=== PATIENT | male | born 1935 | race Caucasian/White ===

== ENCOUNTER 2017-02-01 16:25 | Inpatient (IN) | payer OTHER ==
--- NOTE | ~2017-02-01 | EKG ---
PATIENT: ALEXANDRA HINTON UNIT #: [id number] Ventricular Rate: 74 BPM Atrial Rate: 74 BPM P-R Interval: 162 ms QRS Duration: 82 ms Q-T Interval: 414 ms QTC Calculation(Bezet): 459 ms P [place]: 42 degrees Calculated R [place]: -27 degrees Calculated T [place]: 102 degrees Diagnosis Line: Normal sinus rhythm Diagnosis Line: Minimal voltage criteria for LVH, may be normal Diagnosis Line: variant Diagnosis Line: Inferior infarct , age undetermined Diagnosis Line: T wave abnormality, consider lateral ischemia Diagnosis Line: Abnormal ECG Diagnosis Line: No previous ECGs available Diagnosis Line: Confirmed by CHANELL PICKENS MD ([id number]) on Diagnosis Line: 02/03/2017 3:16:59 PM INTERPRETING MD: NELIA DAVILA
--- NOTE | ~2017-02-01 | CT71 ---
[facility] A Service of [facility] RADIOLOGY TEXT RESULTS PATIENT: ALEXANDRA HINTON LOCATION: [facility] : 33 UNIT #: [id number] AGE: [address]: El Mckinney MD SEX: M ORDER DR: [id number] [facility] [address] [place], [place] [address] [id number] MR#: [id number] #: [id number] NAME: ALEXANDRA HINTON : 1935 SEX: M STUDY DATE/TIME: 02/01/2017 17:28 UNIT: [address] ROOM: [facility] STUDY DESCRIPTION: CT Head Wo Contrast Attending Physician: El Mckinney M.D. Ordering Physician: Sumanth Clay M.D. MEDICAL IMAGING REPORT This report is preliminary unless electronic signature is present EXAM Head CT without contrast, 02/01/2017 HISTORY Left arm numbness beginning last night. Focal neurologic defect. No headache. This CT exam was performed with one or more of the following radiation dose reduction techniques: automatic exposure control, adjustment of mA and/or kV according to patient size, and iterative reconstruction. FINDINGS Multiple axial images were obtained from the skull base to vertex without intravenous contrast administration. There is generalized enlargement of the ventricles and sulci characteristic of atrophy and there is periventricular microvascular white matter ischemic change. There is an old infarct with encephalomalacia in the inferior left frontal lobe. Tiny old lacunar infarcts are seen in the thalamic nuclei bilaterally. There is no midline shift. There is no mass or mass effect, hemorrhage or acute infarct. The visualized paranasal sinuses are clear. IMPRESSION Generalized atrophy and periventricular microvascular white matter ischemic change. Old infarcts as noted above. No acute intracranial abnormality. Dictated by... Laci Tavarez M.D. THIS IS AN ELECTRONICALLY VERIFIED REPORT Laci Tavarez M.D. at 02/02/2017 2:10 PM [facility] A Service of [facility] RADIOLOGY TEXT RESULTS PATIENT: ALEXANDRA HINTON LOCATION: [facility] : 33 UNIT #: [id number] AGE: [address]: El Mckinney MD SEX: M ORDER DR: SHERRY/balaji TD: 02/02/2017 01:39 JOB #: [id number] MEDICAL IMAGING REPORT Page 1 of 1 COPY
--- NOTE | ~2017-02-01 | HP ---
Unit #: [id number] #: [id number] Patient: ALEXANDRA MCNULTY [id number] [address] [address] [id number] I MR#: [id number] NAME: ALEXANDRA MCNULTY ROOM: 301 Age: 81 Sex: M Admission Date: 02/01/2017 : 1935 Attending Physician: El Mckinney M.D. Primary Care Physician: No Primary Care Physician HISTORY AND PHYSICAL HISTORY OF PRESENT ILLNESS Mr. Mcnulty is an 81-year-old white male. I have seen his before in the office. He presented with awakening yesterday morning with left arm paresthesias and weakness and dyscoordination of the left hand. He said he would tow picker his keys or things and drop them. He presented to the emergency room approximately nine hours after symptoms began. He has not had similar symptoms. He had no vision problems or impaired speech or decreased ability to stand or walk. No falling. He had had no chest pain or arm pain. No shortness of breath or hemoptysis. PAST MEDICAL HISTORY No medical problems. He may be prediabetic with some neuropathy of his feet he says. PAST SURGICAL HISTORY Cholecystectomy. FAMILY HISTORY Negative for lung disease. ALLERGIES Morphine. CURRENT MEDICATIONS He is on no prescribed medications. He does take some supplements. REVIEW OF SYSTEMS CONSTITUTIONAL: No fevers or chills. HEENT: No rhinorrhea, nasal congestion. PULMONARY: No shortness of breath or hemoptysis. CARDIAC: No chest pain. No palpitations. GI: No nausea or vomiting. No melena or hematochezia. RENAL: No hematuria or dysuria. NEUROLOGIC: As noted. MUSCULOSKELETAL: No major pain. SKIN: Recently had some herpes zoster posteriorly on the right side. Symptoms pretty much resolved. PHYSICAL EXAMINATION GENERAL: White male in no distress, sitting in bed. VITALS: Blood pressure 177/97, pulse 72, respiratory rate 19, afebrile. Blood pressure has been elevated. O2 saturation 99% on room air. HEENT: Normocephalic, atraumatic. Pupils equal, round and reactive. Sclerae nonicteric. Nasal passages patent. Posterior pharynx clear. Unit #: [id number] #: [id number] Patient: ALEXANDRA MCNULTY Mucous membranes moist. NECK: Supple. Trachea midline. No cervical or supraclavicular lymphadenopathy. No bruits heard. LUNGS: Clear to auscultation and percussion. HEART: Regular rate and rhythm. Could not appreciate murmur, rub or gallop. ABDOMEN: Nontender. Bowel sounds present. No hepatosplenomegaly. EXTREMITIES: Without clubbing, cyanosis or edema. He does have some mild dyscoordination of left hand and some paresthesias of the left arm below the elbow. There is some discoloration of the right posterior chest wall. DIAGNOSTIC STUDIES IMAGING: CT scan of the head and neck No acute changes. No bleed. Some chronic ischemia changes bilaterally. Periventricular microvascular white matter ischemic change. LABORATORY: Chemistry reviewed and unremarkable. Coags normal. Cardiac enzymes negative. White blood cell count 7,400, hematocrit 40.3, platelets normal. ASSESSMENT 1. Possible right CVA with left arm symptoms. 2. Hypertension. PLAN Will have cardiology see. Will check MRI. Will add lisinopril for high blood pressure. Will make further recommendations pending this. Dictated by Jed Ramírez/cassie TD: 02/02/2017 10:08 JOB #: [id number] CC: Jed Isaac M.D. HISTORY AND PHYSICAL Page 1 of 1 X El Mckinney MD X HISTORY AND PHYSICAL
--- NOTE | ~2017-02-01 | MR134 ---
[facility] A Service of [facility] RADIOLOGY TEXT RESULTS PATIENT: ALEXANDRA HINTON LOCATION: [facility] : 33 UNIT #: [id number] AGE: [address]: El Mckinney MD SEX: M ORDER DR: [id number] [facility] [address] [place], [place] [address] [id number] I MR#: [id number] Acc #: [id number] NAME: ALEXANDRA HINTON : 1935 SEX: M STUDY DATE/TIME: 02/02/2017 13:21 UNIT: A [facility] ROOM: [facility] STUDY DESCRIPTION: MR MRA Neck Wo Contrast Attending Physician: El Mckinney M.D. Ordering Physician: El Mckinney M.D. MRI CENTER REPORT This report is preliminary unless electronic signature is present. EXAM MRA neck 02/02 HISTORY Left-side stroke-like symptoms. Symptoms started middle of the night. Left arm numbness. Former smoker. TECHNIQUE Noncontrast cghu-af-fujcva imaging was obtained through the neck. MIP reconstructions through the arterial system were obtained. COMPARISON STUDIES No comparison. FINDINGS The exam is motion-degraded. Both vertebral arteries appear normal and codominant. Common carotid arteries are within normal limits. There appears to be a high-grade short-segment stenosis in the proximal right ICA. This could be better evaluated with head and neck CT angiogram. No significant left-side stenosis is seen. IMPRESSION 1. Findings are concerning for a high-grade stenosis by NASCET criteria involving the proximal right ICA. This could be better assessed with head and neck CT angiogram. 2. No evidence of carotid or vertebral dissection. Vertebral arteries are codominant and widely patent. Dictated by... Kayode Gil Jr., M.D. [facility] A Service [facility] RADIOLOGY TEXT RESULTS PATIENT: ALEXANDRA HINTON LOCATION: [facility] : 33 UNIT #: [id number] AGE: [address]: El Mckinney MD SEX: M ORDER DR: THIS IS AN ELECTRONICALLY VERIFIED REPORT Kayode Gil Jr., M.D. at 02/02/2017 8:48 PM RLK/pcl TD: 02/02/2017 18:23 JOB #: [id number] MRI CENTER REPORT Page 1 of 1 COPY
--- NOTE | ~2017-02-01 | CO ---
Unit #: [id number] #: [id number] Patient: ALEXANDRA MCNULTY [id number] [address] [address] [id number] I MR#: [id number] NAME: ALEXANDRA MCNULTY ROOM: 301 Age: 81 Sex: M Admission Date: 02/01/2017 : 1935 Attending Physician: El Mckinney M.D. Primary Care Physician: No Primary Care Physician Consultation Date: 02/03/2017 CONSULTATION REPORT CONSULTING PHYSICIAN Dr. Tyson. REASON FOR CONSULTATION Carotid stenosis. Mr. Mcnulty is an 81-year-old male who presented with paresthesias, weakness and discoordination of his left hand. He was unable to hold on to items and could not straighten his hand. He is left handed. His symptoms persisted and he presented to the emergency room. It was nine hours after his symptoms began. As part of his workup, he underwent MRI which demonstrated a right MCA, embolic infarct. It also demonstrated high grade right internal carotid stenosis. Carotid duplex found elevated velocities of 350 of the right internal carotid artery indicating greater than 70% stenosis and elevated velocities of the mid on the left indicating 50% to 69% stenosis. PAST MEDICAL HISTORY He denies significant medical history. He has never seen a plastic maker. He has recently experienced shingles. He does not take any medications daily at home. PAST SURGICAL HISTORY Cholecystectomy. SOCIAL HISTORY He quit smoking in 1981 but smoked a lot prior to that time. He does not drink. He does live with a with significant dementia that he cares for. FAMILY HISTORY Mother is , had a history of heart problems and colon cancer. Father had a history of cancer. REVIEW OF SYSTEMS CONSTITUTIONAL: Negative. HEENT: Positive for wearing glasses. CARDIAC: Significant for chest pain. PULMONARY: Negative for shortness of air. NEUROLOGICAL: Positive for left sided weakness. MUSCULOSKELETAL: Negative. SKIN: Positive for recent shingles. GI: Negative. : Negative. Unit #: [id number] #: [id number] Patient: ALEXANDRA MCNULTY MEDICATIONS 1. He has been initiated on lisinopril 5 mg daily. 2. Aspirin 81 mg daily. PHYSICAL ASSESSMENT VITAL SIGNS: Height is 183 cm, weight is 89 kg. Temperature is 97.8, pulse 67, respirations 20, blood pressure is 175/91. EYES: There is no injected conjunctivae, no xanthelasma of the eyelids. EARS, NOSE, MOUTH AND THROAT: He has moist mucous membranes without pallor or cyanosis. Teeth are in fair repair. He is wearing glasses. NECK: There is no JVD. LUNGS: Clear without use of accessory muscles or intercostal retractions. HEART: S1 and S2. Regular rate and rhythm. ABDOMEN: Soft without hepatosplenomegaly. VASCULAR: He has no cervical bruits. Radial pulses are palpable. There is no pulsatile abdominal mass. Femoral, popliteal, dorsalis pedis and posterior tibial pulses are easily palpable. SKIN: There is no hemosiderin deposition, stasis dermatitis. No wounds or ulcerations to the lower extremities. MUSCULOSKELETAL: Moves extremities well without atrophy or abnormal movements. NEURO: She is alert, oriented. Answers all questions appropriately. Good historian. Left hand weakness has improved. DIAGNOSTIC STUDIES IMAGING: Carotid duplex demonstrates elevated velocity of the right internal carotid artery at 350 indicating greater than 70% stenosis. There is 50% to 69% of the left internal carotid artery. MRA demonstrates right MCA thromboembolic infarcts with high grade right internal carotid stenosis. IMPRESSION Symptomatic high grade right internal carotid stenosis. The patient is left handed. RECOMMENDATIONS He will need a carotid endarterectomy this week. He has already been initiated on aspirin. Will initiate Lipitor 10 mg daily. Cardiology will be consulted for preop endarterectomy and cardiac clearance. Thank you for allowing us to participate in this patient's care. Dictated by... Rafael Lilly.P.R.N. for Jed Pinedo/geovanna TD: 02/04/2017 07:06 JOB #: [id number] Unit #: [id number] #: [id number] Patient: ALEXANDRA MCNULTY CONSULTATION REPORT Page 1 of 1 X X CONSULTATION REPORT
--- NOTE | ~2017-02-01 | EKG ---
PATIENT: ALEXANDRA HINTON UNIT #: [id number] Ventricular Rate: 67 BPM Atrial Rate: 67 BPM P-R Interval: 156 ms QRS Duration: 102 ms Q-T Interval: 448 ms QTC Calculation(Bezet): 473 ms P [place]: 51 degrees Calculated R [place]: -15 degrees Calculated T [place]: 130 degrees Diagnosis Line: Normal sinus rhythm Diagnosis Line: Left ventricular hypertrophy Diagnosis Line: Prolonged QT Diagnosis Line: Abnormal ECG Diagnosis Line: When compared with ECG of 01-FEB-2017 17:02, Diagnosis Line: No significant change was found Diagnosis Line: Confirmed by RICHY ISAACS MD ([id number]) on Diagnosis Line: 02/07/2017 9:46:27 AM INTERPRETING MD: WEI
--- NOTE | ~2017-02-01 | MR122 ---
[facility] A Service of [facility] RADIOLOGY TEXT RESULTS PATIENT: ALEXANDRA HINTON LOCATION: A 301- : 33 UNIT #: [id number] AGE: [address]: El Mckinney MD SEX: M ORDER DR: [id number] [facility] [address] [place], [place] [address] [id number] I MR#: [id number] Acc #: [id number] NAME: ALEXANDRA HINTON : 1935 SEX: M STUDY DATE/TIME: 02/02/2017 13:21 UNIT: A U ROOM: [facility] STUDY DESCRIPTION: MR MRA Head Wo Contrast Attending Physician: El Mckinney M.D. Ordering Physician: El Mckinney M.D. Primary Care Physician: Primary Care Physician No MRI CENTER REPORT This report is preliminary unless electronic signature is present. EXAM MR angiogram [place] vasculature HISTORY CVA, right brain with left arm symptoms. History of hypertension, left arm numbness started director case of 02/01/2017. No history of trauma or cancer. Preliminary wet reading provided by Dr. Gil at 15:07 on 02/02/2017. See separate dictation MRI brain. FINDINGS There are extensive intracranial abnormalities with extensive areas of stenosis and ectasia throughout all vascular distributions most consistent with severe intracranial atherosclerotic disease though vasculitis is a secondary less likely consideration. There is severe involvement of the vertebrobasilar system and allowing for artifact, likely severe involvement in the KAREN and MCA territories. There is origin to the right posterior cerebral artery distribution. There is signal loss in the proximal right posterior cerebral artery which could be real or artifactual. I believe the right A1 vessel is hypoplastic, aplastic or diseased and supply of the right A2 vessel is probably from the left side. Left A1 vessel is likely diseased also. 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 This should be extradural. There is a smaller probable aneurysm from the left-sided supraclinoid ICA about 2.0 mm in diameter. Areas of stenosis in the bilateral KAREN territory and MCA territory. IMPRESSION [facility] A Service of [facility] RADIOLOGY TEXT RESULTS PATIENT: ALEXANDRA HINTON LOCATION: [facility] 301-01 : 33 UNIT #: [id number] AGE: [address]: lE Mckinney MD SEX: M ORDER DR: 1. Abnormal examination with extensive areas of intracranial stenosis and ectasia most likely due to extensive intracranial atherosclerotic disease, vasculitis less likely. Please correlate further clinically. 2. 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 These could be further characterized with conventional angiography or CT angiography if it would alter management in this patient. See above. STAT * RESULT Dictated by... Bere John M.D. THIS IS AN ELECTRONICALLY VERIFIED REPORT Bere John M.D. at 02/03/2017 11:39 PM JONO/martin TD: 02/03/2017 16:16 JOB #: [id number] MRI CENTER REPORT Page 1 of 1 COPY
--- NOTE | ~2017-02-01 | MR18 ---
[facility] A Service of [facility] RADIOLOGY TEXT RESULTS PATIENT: ALEXANDRA HINTON LOCATION: [facility] 301- : 33 UNIT #: [id number] AGE: [address]: El Mckinney MD SEX: M ORDER DR: [id number] [facility] [address] [place], [place] [address] [id number] I MR#: [id number] Acc #: [id number] NAME: ALEXANDRA HINTON : 1935 SEX: M STUDY DATE/TIME: 02/02/2017 13:21 UNIT: [facility] PCU ROOM: 301 STUDY DESCRIPTION: MR Brain Wo Contrast Attending Physician: El Mckinney M.D. Ordering Physician: El Mckinney M.D. MRI CENTER REPORT This report is preliminary unless electronic signature is present. EXAM MRI brain 02/02 HISTORY History of hypertension. Left arm numbness, started middle of the night. Former smoker. TECHNIQUE Multisequence, multiplanar imaging was performed through the brain without contrast in the high-field strength magnet. COMPARISON STUDIES Head CT, 02/01/2017. FINDINGS There is generalized atrophy with chronic small vessel ischemic disease in the white matter. There is an old right caudate nucleus infarct with some subsequent calcification. Diffusion images show a few small cortical foci of restricted diffusion on the right side which appears to be in the pre- and post-central gyri extending into the deeper white matter near the same level. The remainder of the diffusion series is negative. No evidence of acute hemorrhage. There is an old left inferior frontal infarct. Craniovertebral junction is normal. No masses are seen. The remainder of the intracranial flow voids is maintained. Findings are suspicious for a left-side PCOM aneurysm measuring 5-6 mm in size. Please see MRA report for description of findings. IMPRESSION 1. Small mfcyc-cc-emjarqyk infarcts in the right cortex that appear to be in the pre- and post-central gyri and slightly deeper in the adjacent white matter. No associated hemorrhage. 2. Atrophy with chronic small vessel ischemic disease in the white [facility] A Service of [facility] RADIOLOGY TEXT RESULTS PATIENT: ALEXANDRA HINTON LOCATION: [facility] 301-01 : 33 UNIT #: [id number] AGE: [address]: El Mckinney MD SEX: M ORDER DR: matter. 3. Old right basal ganglia and left inferior frontal infarcts. 4. 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 Please see the MRA report dictated separately. Dictated by... Kayode Gil Jr., M.D. THIS IS AN ELECTRONICALLY VERIFIED REPORT Kayode Gil Jr., M.D. at 02/02/2017 8:48 PM QUE/jayme TD: 02/02/2017 17:53 JOB #: [id number] MRI CENTER REPORT Page 1 of 1 COPY
--- NOTE | ~2017-02-01 | DS ---
Unit #: [id number] #: [id number] Patient: ALEXANDRA HINTON [id number] [address] [address] [id number] I MR#: [id number] NAME: ALEXANDRA HINTON ROOM: 301 Age: 81 Sex: M Admission Date: 02/01/2017 : 1935 Discharge Date: 02/06/2017 Attending Physician: El Mckinney M.D. Primary Care Physician: No Primary Care Physician DISCHARGE SUMMARY DISCHARGE DIAGNOSES 1. 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 2. Hypertension. 3. Cardiomyopathy with ejection fraction of 30% to 35%. 4. Hyperlipidemia. DISCHARGE MEDICATIONS 1. Lopressor 25 mg p.o. daily. 2. Lipitor 40 mg p.o. daily. 3. Lisinopril 5 mg p.o. daily. 4. Plavix 75 mg daily if okay with vascular surgery. HOSPITAL COURSE The patient was admitted with left arm symptoms, decreased mobility and fine motor function and decreased sensation. CT scan of the head was unremarkable. MRI was done, which revealed extensive areas of intracranial stenosis and ectasia, most likely due to extensive intracranial atherosclerosis. There were intracranial aneurysms, 4 mm, in the origin of a right posterior communicator, 4-mm aneurysm of the cavernous internal carotid artery on the left and up 2-mm aneurysm in the supraclinoid internal carotid artery on the left. There was high-grade stenosis on the right. MRI of the brain showed small acute to subacute infarcts in the right cortex that appeared to be pre- and postcentral gyri and slightly deeper in the adjacent white matter. No hemorrhage was identified. There was chronic small vessel ischemic disease. There was an old right basal ganglia and left inferofrontal infarct. He was seen by neurology. He was also noted to have hypertension and was seen by cardiology. Echocardiogram revealed an ejection fraction of 30% to 35%. He felt that he needed ischemic workup as an outpatient. He was seen by vascular surgery, underwent right carotid endarterectomy without complication and is now going to be discharged home. According to neurology noted, he is to follow up with Dr. Walter, and he will start Plavix 75 mg p.o. daily if okay with vascular surgery, and he will stop his aspirin. Dictated by... Jed Ramírez/monica TD: 02/09/2017 09:53 JOB #: [id number] CC: Sonal Ayala M.D. Unit #: [id number] #: [id number] Patient: ALEXANDRA HINTON II., M.D. Stacy R. Trinkle, M.D. DISCHARGE SUMMARY Page 1 of 1 X El Mckinney MD DISCHARGE SUMMARY
--- NOTE | ~2017-02-01 | OR ---
Unit #: [id number] #: [id number] Patient: ALEXANDRA HINTON [id number] [address] [place], [place] [address] [id number] I MR#: [id number] NAME: ALEXANDRA HINTON ROOM: 301 Date of Procedure: 02/05/2017 Admission Date: 02/01/2017 Surgeon: Dwayne Alan M.D. : 1935 Attending Physician: El Mckinney M.D. PROCEDURE OPERATIVE NOTE PREOPERATIVE DIAGNOSIS Right carotid stenosis, symptomatic. POSTOPERATIVE DIAGNOSIS Right carotid stenosis, symptomatic. PROCEDURE PERFORMED Right carotid endarterectomy with shunt placement, and intraoperative duplex. COTTON TIPPER Jagjit Chadwick. ANESTHESIA General. INDICATIONS FOR PROCEDURE This is an 81-year-old male with a right carotid high-grade stenosis greater than 70% by duplex and the right cerebral small stroke with resolved deficits. He was recommended right carotid endarterectomy. Options, risks, and benefits were explained, and he and the family understood and agreed to proceed. They were explained the risks included, but were not limited to bleeding, infection, nerve injuries, stroke, [place], pneumonia, restenosis etc. DESCRIPTION OF PROCEDURE The patient was brought to the operating room and general anesthesia was administered. The neck and the chest were cleaned, prepped, and draped in the usual sterile fashion. A longitudinal incision was made in the right side of the neck and the skin, subcutaneous tissues, platysma, and the fascia were divided, and the sternomastoid were reflected laterally. External jugular vein was doubly ligated and divided. Common facial vein was doubly ligated and suture ligated and divided. The common internal and external carotid arteries were dissected out and the hypoglossal nerve was mobilized and the vagus was preserved. The patient was then given 100 units/kilo heparin and ACT was checked and maintained greater than 250 seconds. The internal, external, and common carotid arteries were sequentially clamped. Incision was made in the common carotid artery and extended across the bifurcation into the internal carotid artery. A cheesy plaque was noted in the proximal internal carotid artery with high-grade stenosis. A previously flushed 14-Moldovan [place] shunt was passed into the internal carotid artery. Backflushed revealing good Unit #: [id number] #: [id number] Patient: ALEXANDRA HINTON backbleeding and passed into the common carotid artery. Satisfactory shunt placement was achieved and confirmed with a Doppler. Endarterectomy was then started and plaque was at the bifurcation. An endarterectomy of the common carotid artery was performed and plaque was transected proximally. Endarterectomy of the distal internal carotid artery was performed with an excellent feathered endpoint. Eversion endarterectomy of the external carotid artery was performed. Stay sutures were placed and loose bits of plaque were removed leaving the smooth surface. The area was irrigated thoroughly. Pericardial patch 8 cm long was taken and patch angioplasty was performed with 6-0 Prolene in a continuous fashion. Prior to completion of the anastomosis, the shunt was removed and the vessels were flushed antegrade and retrograde, and an anastomosis was completed. Flow was restored initially to the external, then to the internal carotid artery. Additional sutures were placed for hemostasis as needed. Intraoperative duplex was then performed which showed satisfactory appearance of the common internal, external carotid arteries with no flaps or defects. A 15-Moldovan [place] drain was placed through a separate stab incision. The patient was given 30 mg of protamine to reverse the heparin and wounds were closed in layers with 2-0 and 3-0 Vicryl, and 4-0 Monocryl. The patient recovered satisfactorily from anesthesia and moved all extremities. He was transported to the recovery room in stable condition. Sponge and instrument counts were reported to be correct. Dictated by... Jed Pinedo TD: 02/10/2017 10:51 JOB #: [id number] PROCEDURE OPERATIVE NOTE Page 1 of 1 X Dwayne Alan MD X PROCEDURE OPERATIVE NOTE
--- NOTE | ~2017-02-01 | CO ---
Unit #: [id number] #: [id number] Patient: ALEXANDRA HINTON [id number] [address] [address] [id number] I MR#: [id number] NAME: ALEXANDRA HINTON ROOM: 301 Age: 81 Sex: M Admission Date: 02/01/2017 : 1935 Attending Physician: El Mckinney M.D. Primary Care Physician: No Primary Care Physician Consultation Date: 02/03/2017 CONSULTATION REPORT REASON FOR CONSULTATION Pre-op clearance for carotid endarterectomy. HISTORY OF PRESENTING ILLNESS This is an 81-year-old male with no known prior cardiac history. He is a reformed smoker; states he quit in the , and he states he may be borderline diabetic. Denies coronary artery disease, hypertension, hyperlipidemia or chronic health problems. States he does have some problems with urinary frequency and hesitancy, which he attributes to his prostate and he takes jgaq-fos-ovpnapb supplements for this. He denies chest pain, pressure, tightness or palpitations. States he is fairly active. He does become somewhat short of breath with 2-3 flights of stairs but rebounds easily with rest. He states he woke up on 02/01/2017 with some left hand numbness and inability to sales administration manager things. States he had problems dropping things off and on all day. After ongoing numbness he presented to the ER. In the ER, CT of the head showed a probable old CVA but no acute changes. 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 Bilateral carotid ultrasound showed right ICA greater than 70% and left ICA "59%" to 60%. We were asked to evaluate him for preoperative clearance for carotid endarterectomy. PAST MEDICAL HISTORY Reformed smoker. Quit in the . PAST SURGICAL HISTORY Cholecystectomy. FAMILY HISTORY Denies family history of premature coronary artery disease. SOCIAL HISTORY Lives with his who has dementia. Denies alcohol use. He is a former smoker who quit in the . ALLERGIES Morphine. HOME MEDICATIONS No reported home medications. Unit #: [id number] #: [id number] Patient: ALEXANDRA HINTON REVIEW OF SYSTEMS Positive for left hand numbness, decreased coordination of the left hand. Otherwise, negative except for what was stated in the HPI. PHYSICAL EXAMINATION VITAL SIGNS: Temperature 98.3, heart rate 67, respiratory rate 19, blood pressure 175/91, height 72", weight 88.4 kg. GENERAL: This is a pleasant 81-year-old male resting in bed in no acute distress. HEENT: Head is atraumatic and normocephalic. Pupils are equal and round. Mucous membranes are moist. NECK: Supple. Trachea is midline. Negative for JVD. CARDIOVASCULAR: S1, S2. Regular rate and rhythm. No murmurs, rubs or gallops are auscultated. ABDOMEN: Soft, nontender, nondistended. EXTREMITIES: Pulses are palpable. No pedal edema. No cyanosis. NEUROLOGIC: Alert and oriented x3. Answers questions appropriately. Left hand sales administration manager weakness. DIAGNOSTIC STUDIES LABORATORY RESULTS: Sodium 138, potassium 4.1, chloride 105, BUN 20, creatinine 1.4, glucose 103. Hemoglobin 13.4, hematocrit 40.3, white blood cell count 7.4, platelets 165. Lipid panel - Triglycerides 74, cholesterol 222, HDL 41. TSH 2.09. IMAGING STUDIES: CT of the head showed no acute changes. Some chronic ischemic changes bilaterally with periventricular microvascular white matter ischemic change noted. 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 Carotid ultrasound showed right ICA greater than 70% and left ICA "59%" to 60%. MRA of the head and neck showed a right MCA thromboembolic infarct and high-grade right ICA stenosis. CARDIOVASCULAR STUDIES: EKG showed normal sinus rhythm with a ventricular rate of 72 and nonspecific T wave changes. Echocardiogram is currently pending. ASSESSMENT 1. Right ICA stenosis greater than 70% and left ICA stenosis 50% to 69%. 2. Acute/subacute right MCA thromboembolic infarcts. 3. 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 4. Hypertension. 5. Reformed smoker. PLAN 1. Check echocardiogram. 2. Continue statin, aspirin and ANUJ inhibitor. 3. Dr. Dallas will comment on pre-op cardiac clearance for the carotid endarterectomy. Thank you for asking us to see this patient. We appreciate the consult. Unit #: [id number] #: [id number] Patient: MARY JANEALEXANDRA Dictated by... KEN Khan TD: 02/04/2017 07:41 JOB #: [id number] CONSULTATION REPORT Page 1 of 1 X X CONSULTATION REPORT
--- NOTE | ~2017-02-01 | US37 ---
[facility] A Service of [facility] & [facility] RADIOLOGY TEXT RESULTS PATIENT: ALEXANDRA HINTON LOCATION: C3A 301- : [birth year] UNIT #: [id number] AGE: [address]: El Mckinney MD SEX: M ORDER DR: [id number] [facility] [address] [place], [place] [address] [id number] I MR#: [id number] Acc #: [id number] NAME: ALEXNADRA HINTON : 1935 SEX: M STUDY DATE/TIME: 02/03/2017 9:10 UNIT: C3A PCU ROOM: [facility] STUDY DESCRIPTION: US Carotid W/Doppler Bilateral Attending Physician: El Mckinney M.D. Ordering Physician: El Mckinney M.D. Primary Care Physician: Primary Care Physician No MEDICAL IMAGING REPORT This report is preliminary unless electronic signature is present EXAM Carotid Doppler bilateral 02/03/2017 HISTORY Left arm numbness for 2 days. Hypertension. Brain MRI 02/02/2017 demonstrated small acute to subacute infarcts in the right cortex. Evaluate for carotid stenosis. FINDINGS Paiz-scale carotid artery images were obtained as well as Doppler waveform, spectral analysis and color-flow Doppler imaging. Examination was interpreted according to NASCET criteria. There is elevated peak systolic velocity in the proximal right internal carotid artery of 350 cm/sec care characteristic of greater than or equal to 70% diameter reduction. Peak velocity in the right common and external carotid arteries was 68 cm/sec and 114 cm/sec respectively. There is elevated peak systolic velocity in the midportion of the left internal carotid artery which demonstrated peak systolic velocity of 131 cm/sec. This is characteristic of approximate 50% to 69% diameter reduction. Peak velocity in the left common and external carotid arteries is 72 cm/sec and 85 cm/sec respectively. Antegrade blood flow was seen in both vertebral arteries. There is moderate calcified plaque in the right internal carotid artery. Mild calcified plaque is seen on the left side. IMPRESSION 1. Abnormal examination demonstrating greater than or equal to 70% diameter stenosis in the proximal right internal carotid artery. Consider correlation with CT angiography of the head neck for further evaluation of this finding. 2. Approximate 50% to 69% diameter reduction involving the mid portion of the left internal carotid artery [facility] A Service of [facility] & [facility] RADIOLOGY TEXT RESULTS PATIENT: ALEXANDRA HINTON LOCATION: A 301-01 : [birth year] UNIT #: [id number] AGE: [address]: El Mckinney MD SEX: M ORDER DR: 3. Antegrade blood flow in both vertebral arteries. Dictated by... Laci Tavarez M.D. THIS IS AN ELECTRONICALLY VERIFIED REPORT Laci Tavarez M.D. at 02/05/2017 8:20 AM SHERRY/rae TD: 02/03/2017 11:06 JOB #: [id number] MEDICAL IMAGING REPORT Page 1 of 1 COPY
--- NOTE | ~2017-02-01 | US38 ---
[facility] A Service of [facility] & [facility] RADIOLOGY TEXT RESULTS PATIENT: ALEXANDRA HINTON LOCATION: [facility] 301- : 33 UNIT #: [id number] AGE: [address]: El Mckinney MD SEX: M ORDER DR: [id number] [facility] [address] [place], [place] [address] [id number] I MR#: [id number] #: [id number] NAME: ALEXANDRA HINTON : 1935 SEX: M STUDY DATE/TIME: 02/05/2017 9:07 UNIT: [facility] ROOM: [facility] STUDY DESCRIPTION: US Carotid W/Doppler Unilatera Attending Physician: El Mckinney M.D. Ordering Physician: Dwayne Alan M.D. Primary Care Physician: No Primary Care Physician MEDICAL IMAGING REPORT This report is preliminary unless electronic signature is present REASON FOR EXAM Carotid stenosis with stroke. EXAM Intraoperative right carotid Doppler. FINDINGS Intraoperatively, the right common carotid, internal carotid, and external carotid arteries are widely patent without residual plaque or intimal dissection. Velocity in the common carotid artery is 21 cm/second, proximal ICA 12 cm/second, and distal ICA 17 cm/second, and external carotid artery 45 cm per second. IMPRESSION Widely patent right common carotid, internal carotid, and external carotid arteries following endarterectomy. Dictated by... Theodore Rose M.D. THIS IS AN ELECTRONICALLY VERIFIED REPORT Theodore Rose M.D. at 02/09/2017 7:29 AM Nelson TD: 02/05/2017 13:10 JOB #: [id number] MEDICAL IMAGING REPORT Page 1 of 1 COPY
--- NOTE | ~2017-02-01 | CO ---
Unit #: [id number] #: [id number] Patient: ALEXANDRA HINTON [id number] [facility] [address]. [place], [place] [address] [id number] I MR#: [id number] NAME: ALEXANDRA HINTON ROOM: 301 Age: 81 Sex: M Admission Date: 02/01/2017 : 1935 Attending Physician: El Mckinney M.D. Consultation Date: 02/02/2017 CONSULTATION REPORT PRIMARY CARE PHYSICIAN Not listed. CONSULTING PHYSICIAN Dr. El Mckinney. REASON FOR CONSULTATION Possible CVA. PATIENT IDENTIFICATION This is an 81-year-old left-handed male, evaluated in room 301 at [facility]. SOURCE OF INFORMATION Obtained from the patient as well as the medical record and discussion with Dr. Mckinney. HISTORY OF PRESENT ILLNESS This is a very pleasant, left-handed, 81-year-old male with no significant past medical history per the patient, who presents to [facility] with complaints of clumsiness, numbness, and weakness in his left hand. He states that he went to bed in his usual state of health on the evening prior to admission and woke up on the day of admission noticing that he had numbness from the elbow down in his arm on the left side, clumsiness, was dropping things, and reports the symptoms persisted throughout the day, thus he sought care at our ER later in the afternoon. He denies any facial symptoms, speech problems, vision difficulty, double vision, blurred vision, or loss of vision, any shortness of air or chest pain, dyspnea on exertion, dysrhythmias or feelings of heart palpitations, any leg symptoms associated with his numbness. He does report that the numbness is better, but is still present in his whole hand from the elbow down. He denies any recent injury to his neck or arm or any similar symptoms in the past. He denies any exacerbating or alleviating factors. His Tinel and Phalen signs are negative. He denies any trouble with his gait or sudden changes in his gait. He does report that he thinks he has some neuropathy in his feet bilaterally. He does complain of chronic burning in his feet and numbness from his knees down with worsening numbness distally and some burning at the bottom of his feet. He states that this has been ongoing for chronic period. He denies falls, but reports he does have some trouble with his gait at times due to the numbness of his feet. He denies falls or dizziness. On exam, he still has some mild difficulty with past pointing of the left upper extremity, but otherwise his strength and sensation are intact. He does have again, however, some clearly difficulty with past Unit #: [id number] #: [id number] Patient: ALEXANDRA HINTON pointing of the left upper extremity compared to the right. MRI of the brain has been ordered and is pending. PAST MEDICAL HISTORY 1. He is a reformed smoker. He states he quit in the . He states that he does not take any prescription medications and has no significant past medical history. He thinks he may be "prediabetic" and have "neuropathy of his feet," though he states he has not been evaluated. He states he has been told by his PCP that he may be prediabetic in the past. 2. Cholecystectomy. 3. He denies a history of cardiac disease or history of stroke. FAMILY HISTORY Noncontributory to the presenting condition given his stated age of 81 years. SOCIAL HISTORY The patient is . He takes care of his , who has Alzheimer. He is independent with normal ADLs and runs the household. ALLERGIES Morphine. HOME MEDICATIONS The patient takes qidm-ebw-axxrepw supplements, but denies taking any prescription medications. I do not have a list of the supplements available at this time. REVIEW OF SYSTEMS A 14-point review of systems was attempted. Pertinent positives are as discussed above, otherwise negative. PHYSICAL EXAMINATION VITAL SIGNS: Temperature 97.5, he has been afebrile. Pulse 72, respirations 18, blood pressure 177/97, blood pressure in the ER on arrival was 168/90. He has had some elevated diastolic pressures over 100 on this admission. Systolic has been as high as 185 throughout the night. His height 6 feet 0 inches. Oxygen saturation is 99%. Weight 196 pounds. BMI 26. NEUROLOGIC: The patient is currently very pleasant, ,awake, alert, and oriented to person, place, and time as well as events. No right or left confusion. No finger agnosia. No aphasia, dysarthria, or apraxia. Cranial nerve examination demonstrates full nguyen of vision. Eyes are conjugate without ptosis or nystagmus. Extraocular movements are intact. Sensation of face and scalp is intact. Strength of the facial expression is intact. Hearing is intact to finger rub and conversation. Tongue is midline. Uvula is midline. Palate elevation is normal. Head turning and shoulder shrug are unremarkable. Neck is supple. Motor examination demonstrates normal bulk and tone. Strength is equal 5/5 in all extremities. His inside sales account executive strength is equal. Sensory exam is intact. He does have decreased sensation bilaterally distally in his feet compared to proximally. Coordination; he does have some difficulty with past pointing consistently with the left hand, appears to have pretty symmetric and normal rapid alternating movements. He does not appear to have any wrist drop in the right or left hand, and strength appears to be intact proximally and distally in upper and lower extremity. Gait is unremarkable. Romberg deferred. Reflexes, unable to elicit. Toes are equivocal. Coordination, as discussed above. Unit #: [id number] #: [id number] Patient: ALEXANDRA HINTON DIAGNOSTIC STUDIES IMAGING STUDIES: CT of the head without contrast shows generalized atrophy and periventricular microvascular white matter ischemic change with old infarcts in the inferior left frontal lobe and tiny old lacunar infarct in the thalamic nuclei bilaterally. No midline shift. No mass effect or mass, hemorrhage or acute infarct. Visualized paranasal sinuses are clear. No acute intracranial abnormality. LABORATORY RESULTS: Troponin, less than 0.05. Glucose 89. BMP is unremarkable other than a creatinine of 1.4. His estimated GFR is 46.2. PT 10.7, INR 1.0, and PTT 27.1. His CBC is completely unremarkable as well. IMPRESSION 1. Left upper extremity ataxia and paresthesia, rule out small vessel ischemic infarct. 2. History of stroke on CT in the inferior left frontal lobe and bilateral thalamic nuclei, unknown to the patient, asymptomatic. 3. Reformed smoker, he quit in the 1980s. PLAN We will start the patient on aspirin, he has received two doses already. We will check MRI of the brain, MRA of the head and neck, 2D echo, and lab work to further evaluate given his history of stroke and new presentation of focal neurologic deficit especially given that it is in his dominant hand. He does not appear to have any wrist drop or any suggestion of carpal tunnel. We will discuss further with Dr. Tyson after his evaluation and follow up on MR imaging. Please call for any questions or issues. The patient is not a candidate for acute intervention. He presented well outside the window with symptoms ongoing for several hours prior to arrival. Please call for any questions or issues. We thank you very much for allowing us to assist in the care of this patient. Dictated by... Giulia Prater A.P.R.N. for Jed Joya/kiya TD: 02/03/2017 11:00 JOB #: [id number] CONSULTATION REPORT Page 1 of 1 X Giulia Prater APRN X CONSULTATION REPORT
[2017-02-01 18:00] LABS: BASOPHIL% 0.7 % (0-2.5); EOSINOPHIL# 0.2 X10e3 (0-0.7); EOSINOPHIL% 2.3 % (0.0-7.0); HEMATOCRIT 40.3 % (38.0-50.0); HEMOGLOBIN 13.4 gm/dL (13.0-16.0); LYMPHOCYTE# 1.4 X10e3 (1.0-3.5); LYMPHOCYTE% 18.5 % (17.0-45.0); MEAN CORPUSCULAR HEMOGLOBIN 31.2 PG (28-34); MEAN CORPUSCULAR HGB CONC 33.2 g/dL (30-36); MEAN PLATELET VOLUME 8.2 FL (6.5-11.5); MONOCYTE# 0.7 X10e3 (0-1.0); NEUTROPHIL# 5.1 X10e3 (1.5-7.1); NEUTROPHIL% 68.5 % (40-75); PLATELET COUNT 165 X10e3 (140-420); RED BLOOD COUNT 4.29 X10e (3.90-5.60); RED CELL DISTRIBUTION WIDTH 13.2 % (11.0-15.5); WHITE BLOOD COUNT 7.4 X10e3 (4.0-10.5)
[2017-02-01 18:15] LABS: PARTIAL THROMBOPLASTIN TIME 27.1 SECONDS (23.5-31.3); PROTHROMBIN TIME (PATIENT) 10.7 SECONDS (9.6-11.5)
[2017-02-01 18:19] LABS: DIFF IND NO
[2017-02-01 18:22] LABS: ALBUMIN SERUM 4.3 g/dL (3.5-5.0); BILIRUBIN, DIRECT 0.1 mg/dL (0.0-0.2); BILIRUBIN,INDIRECT 0.6 mg/dL (0.0-0.9); BILIRUBIN,TOTAL 0.7 mg/dL (0.2-2.0); BUN/CREATININE RATIO 14.28; CALCIUM SERUM 9.1 mg/dL (8.4-10.2); CREATININE SERUM 1.4 mg/dL (0.6-1.4); GLOM FILT RATE Estimated 46.2 mL/min (>60); POTASSIUM 4.1 mmol/L (3.5-5.1); PROTEIN TOTAL SERUM 6.7 g/dL (6.0-8.3)
[2017-02-01 20:01] LABS: POC - CKMB 1.7 ng/mL (0.0-7.9); POC - TROPONIN <0.05 ng/mL (<=0.05)
[2017-02-02 13:14] LABS: CHOLESTEROL 222 mg/dL (0-200); HDL CHOLESTEROL 41 mg/dL (29-75); LDL/HDL RATIO 4 RATIO (0-4); TRIGLYCERIDES 74 mg/dL (10-160)
[2017-02-02 13:18] LABS: LDL CHOLESTEROL 166 mg/dL (-130)
[2017-02-04 03:57] LABS: CALCIUM SERUM 8.9 mg/dL (8.4-10.2); CREATININE SERUM 1.2 mg/dL (0.6-1.4); GLOM FILT RATE Estimated 55.6 mL/min (>60); MAGNESIUM 2.1 mg/dL (1.6-3.0); POTASSIUM 3.8 mmol/L (3.5-5.1)
[2017-02-04] MEDS ORDERED: MR XX (11:09)
[2017-02-05 05:37] LABS: HEMATOCRIT 38.2 % (38.0-50.0); HEMOGLOBIN 13.1 gm/dL (13.0-16.0); MEAN CELL VOLUME 92.6 FL (83-96); MEAN CORPUSCULAR HEMOGLOBIN 31.8 PG (28-34); MEAN CORPUSCULAR HGB CONC 34.3 g/dL (30-36); MEAN PLATELET VOLUME 8.2 FL (6.5-11.5); RED BLOOD COUNT 4.12 X10e (3.90-5.60); WHITE BLOOD COUNT 7.1 X10e3 (4.0-10.5)
[2017-02-05 06:10] LABS: PROTHROMBIN TIME (PATIENT) 10.6 SECONDS (9.6-11.5)
[2017-02-05 07:07] LABS: BUN/CREATININE RATIO 15.38; CREATININE SERUM 1.3 mg/dL (0.6-1.4); GLOM FILT RATE Estimated 50.5 mL/min (>60); POTASSIUM 3.9 mmol/L (3.5-5.1)
[2017-02-06] MEDS ORDERED: HYDROCODON-ACE1 EAC7 PO (17:08)
[2017-02-06] MEDS ORDERED: LISINOPRIL5 MG PO (17:09)
[2017-02-06] MEDS ORDERED: CLOPIDOGREL75 MG PO (17:09)
[2017-02-06] MEDS ORDERED: LIPITOR40 MG PO (17:10)
[2017-02-06] MEDS ORDERED: METOPROLOL TAR25 MG PO (17:10)
== END 2017-02-06 18:10 | disposition home or self-care (01) | DRG 38 ==
LOC: CED 16:25 → CEDOF 19:23 → C3A PCU 19:23 → CEDOF 20:22 → CED 20:22 → C3A PCU 21:32 → CEDOF 21:32 → C3A PCU 02-06 18:10
PROVIDERS: Emergency Medicine; Internal Medicine; Internal Medicine Cardiovascular Disease; Surgery Vascular Surgery
PROC: B24BZZZ Ultrasonography of Heart with Aorta (ICD-10-PCS; 2017-02-03)
PROC: 03CK0Z6 (ICD-10-PCS; 2017-02-05)
PROC: 03CM0ZZ Extirpation of Matter from Right External Carotid Artery, Open Approach (ICD-10-PCS; 2017-02-05)
PROC: 037K0ZZ Dilation of Right Internal Carotid Artery, Open Approach (ICD-10-PCS; 2017-02-05)
PROC: 03CH0ZZ Extirpation of Matter from Right Common Carotid Artery, Open Approach (ICD-10-PCS; principal; 2017-02-05 07:30)
DX: I63.311 Cerebral infarction due to thrombosis of right middle cerebral artery (principal); G81.94 Hemiplegia, unspecified affecting left nondominant side; I67.1 Cerebral aneurysm, nonruptured; I42.9 Cardiomyopathy, unspecified; I63.411 Cerebral infarction due to embolism of right middle cerebral artery; I10 Essential (primary) hypertension; Z87.891 Personal history of nicotine dependence; Z88.5 Allergy status to narcotic agent; Z79.82 Long term (current) use of aspirin; Z86.73 Personal history of transient ischemic attack (TIA), and cerebral infarction without residual deficits; Z79.01 Long term (current) use of anticoagulants; I65.21 Occlusion and stenosis of right carotid artery
CPT/HCPCS: 36415; 70450; 70544; 70547; 70551; 80048; 80061; 80076; 82550; 82553; 82947; 83036; 83735; 84443; 84484; 85025; 85027; 85610; 85730; 86140; 93005; 93306; 93880; 93882; 97110; 97112; 97163; 97166; 97535; 99285; G8978-GP; G8979-GP; G8980-GP; G8987-GO; G8988-GO; G8989-GO; J0330; J0690; J1644; J2060; J2405; J2710; J2720; J3010